=== PATIENT | female | born 1995 | race Caucasian/White ===

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

== ENCOUNTER → 2017-12-30 | Outpatient (REF) | payer OTHER | LOC: M LAB REF 16:36 | DX: J06.9 Acute upper respiratory infection, unspecified (principal) ==

== ENCOUNTER → 2019-01-02 | Outpatient (CLI) | payer OTHER ==
[~2019-01-02] MED LIST: OCEL3TAB PO
--- NOTE | 2019-01-02 19:57 | REP ---
CHEST, TWO VIEWS: There is no evidence of acute infiltrate. No pleural effusion is seen. The heart is normal in size. The mediastinal silhouette is unremarkable. The visualized osseous structures are intact. IMPRESSION: No acute pulmonary disease. Electronically Signed by Raz Garcia MD 01/03/2019 10:02 A
== END ==
LOC: M LRY 18:39
PROVIDERS: ATTEND Nurse Practitioner Family
DX: R09.89 Other specified symptoms and signs involving the circulatory and respiratory systems (principal)

== ENCOUNTER → 2019-04-02 | Outpatient (REF) | payer BC ==
[2019-04-02 15:53] LABS: CHLAMYDIA DNA AMPLIFICATION NEGATIVE (NEGATIVE); GC DNA AMPLIFICATION NEGATIVE (NEGATIVE)
== END ==
LOC: M WHC 13:07
PROVIDERS: ATTEND Nurse Practitioner Women's Health
DX: Z12.4 Encounter for screening for malignant neoplasm of cervix (principal); Z11.3 Encounter for screening for infections with a predominantly sexual mode of transmission
CPT/HCPCS: 87661; G0123

== ENCOUNTER → 2020-09-17 | Outpatient (REF) | payer BC ==
[2020-09-18 13:26] LABS: GC DNA AMPLIFICATION NEGATIVE (NEGATIVE)
== END ==
LOC: M SFHCWAGY 10:21
PROVIDERS: ATTEND Nurse Practitioner Women's Health
DX: Z11.3 Encounter for screening for infections with a predominantly sexual mode of transmission (principal); Z12.4 Encounter for screening for malignant neoplasm of cervix
CPT/HCPCS: 87661; G0123

== ENCOUNTER → 2022-06-14 | Outpatient (REF) | payer BC ==
[2022-06-15 12:31] LABS: GC DNA AMPLIFICATION NEGATIVE (NEGATIVE)
== END ==
LOC: M SFHCWAGY 10:21
PROVIDERS: ATTEND Nurse Practitioner Family
DX: Z12.4 Encounter for screening for malignant neoplasm of cervix (principal); Z11.3 Encounter for screening for infections with a predominantly sexual mode of transmission
CPT/HCPCS: 87661; 87810; 87850; G0123

== ENCOUNTER 2023-09-11 20:04 | Emergency (ER) | payer BC ==
[~2023-09-11] VITALS: Ht 165.1 cm; Wt 61.4 kg
[2023-09-11 20:51] LABS: BASO # 0.1 10^3/uL (0.0-0.2); BASO % 0.9 % (0.0-1.0); EOS # 0.1 10^3/uL (0.0-0.5); EOS % 0.7 % (0.0-3.0); HEMATOCRIT 38.7 % (36.0-47.0); HEMOGLOBIN 13.3 g/dl (12.0-15.5); LYMPH # 2.8 10^3/uL (1.5-5.0); LYMPH % 34.3 % (24.0-44.0); MEAN CORPUSCULAR HEMOGLOBIN 30.4 pg (27.0-33.0); MEAN CORPUSCULAR HGB CONC 34.4 g/dl (32.0-36.5); MEAN CORPUSCULAR VOLUME 88.6 fl (80.0-96.0); MONO # 0.7 10^3/uL (0.0-0.8); MONO % 8.7 % (2.0-8.0); NEUTROPHILS # 4.5 10^3/uL (1.5-8.5); NEUTROPHILS % 55.3 % (36.0-66.0); PLATELET COUNT, AUTOMATED 283 10^3/uL (150-450); RED BLOOD COUNT 4.37 10^6/uL (4.00-5.40); WHITE BLOOD COUNT 8.2 10^3/uL (4.0-10.0)
[2023-09-11 21:14] LABS: CK-MB VALUE MASS < 1.0 NG/ML (<3.6)
[2023-09-11 21:15] LABS: BLOOD UREA NITROGEN 11 MG/DL (9-23); CALCIUM LEVEL 9.9 MG/DL (8.5-10.1); CARBON DIOXIDE LEVEL 27 MMOL/L (20-31); CHLORIDE LEVEL 105 MMOL/L (98-107); CPK CREATINE PHOSPHOKINASE 88 U/L (34-145); CREATININE FOR GFR 0.68 MG/DL (0.55-1.30); GLOMERULAR FILTRATION RATE > 60.0 (>60); GLUCOSE, FASTING 90 MG/DL (60-100); MB/CK RELATIVE INDEX 1.13 (< OR =4); POTASSIUM SERUM 3.9 MMOL/L (3.5-5.1); SODIUM LEVEL 139 MMOL/L (136-145)
[2023-09-12 01:30] LABS: CK-MB VALUE MASS < 1.0 NG/ML (<3.6)
[2023-09-12 01:33] LABS: CPK CREATINE PHOSPHOKINASE 76 U/L (34-145); MB/CK RELATIVE INDEX 1.31 (< OR =4)
[2023-09-12] MEDS ORDERED: HOLTER MONITOR XX (06:27)
[2023-09-12 06:50] VITALS: BP 124/88; TEMP 98.8; O2SAT 98
== END 2023-09-12 17:58 | disposition home or self-care (01) ==
LOC: M ED 20:04
DX: R07.89 Other chest pain (principal); Z79.3 Long term (current) use of hormonal contraceptives; Z88.2 Allergy status to sulfonamides